=== PATIENT | female | born 1965 | race Caucasian/White ===

== ENCOUNTER 2020-03-02 11:24 | Outpatient (CLI) | payer OTHER, SELFPAY ==
--- NOTE | ~2020-03-02 | XR_ITS ---
XR hip LT min 2V 03/02/2020 11:45 Indication: Left hip pain Procedure: 2 views left hip Comparison: No prior studies for comparison. Findings: Mild osteoarthritis of the left hip. There is subchondral lucency superiorly in the femoral head with overlying sclerosis. Cannot exclude subtle avascular necrosis of the femoral head. Impression: 1: Mild osteoarthritis of the left hip with possible underlying avascular necrosis. Reviewed, dictated and finalized at location A. Impression: 1: Mild osteoarthritis of the left hip with possible underlying avascular necro sis.
== END 2020-03-02 11:25 | disposition home or self-care (01) ==
LOC: ANHIMG 11:30
PROVIDERS: PCP Physician Assistant; Visit Provider Physician Assistant
DX: M25.552 Pain in left hip (principal); M16.12 Unilateral primary osteoarthritis, left hip
CPT/HCPCS: 73502

== ENCOUNTER → 2020-04-03 10:03 | Outpatient (CLI) | payer OTHER, SELFPAY ==
--- NOTE | ~2020-04-03 | MR_ITS ---
EXAMINATION: MR hip LT wo con DATE: 04/03/2020 10:58 INDICATION: Left hip pain in the flexors and abductors. Limited range of motion at the left hip. TECHNIQUE: Magnetic resonance imaging (MRI) of the left hip was performed without intravenous contra st. Sequences included full-field axial PD-weighted FS FSE and T1-weighted FSE, coronal of the pelvis with PD-weighted FS FSE, small field of view of the left hip with axial PD-weighted FS FSE, sagitta l PD-weighted FS FSE and coronal PD weighted FS FSE. Additional radial T1-weighted FGR oriented ortho gonal to the acetabular rim were obtained for evaluation of the labrum. COMPARISON: Radiograph dated 03/02/2020 FINDINGS: Bones/labrum/cartilage: Alignment is normal. There is prominent marrow edema at the left femoral head and neck associated wit h a large region of osteonecrosis with double line sign which underlies the articular surface through out the cephalad half of the left femoral head. There is some subarticular collapse with subtle shereen ening of the anterosuperior femoral head which is evident both on the current MRI and the prior radio graphs. Similar large region of osteonecrosis at the cephalad aspect of the contralateral right femor al head without significant surrounding edema and without evident collapse of the articular surface. There is mild secondary osteoarthritis with partial thickness cartilage loss nonuniform joint space n arrowing most prominent anterosuperiorly with there is also underlying reactive subarticular edema. D iffuse degenerative tearing of the left acetabular labrum most severe at the anterosuperior labrum wh ere it has a thickened macerated appearance with poorly defined margins. There appears be a linear mo re well-defined labral tear at the superolateral aspect of the contralateral right acetabular labrum which is not diagnostically evaluated on the larger field of view images. Fluid: Small left hip joint effusion. Physiologic amount fluid at the right hip joint. No bursitis or other abnormal fluid collections. Soft tissues: Normal and symmetric muscle signal with no asymmetric muscular atrophy in the pelvis and visualized p roximal thighs. The iliopsoas, gluteal and proximal hamstring tendons are normal. The uterus is not i dentified and has likely been surgically resected. Limited evaluation of visceral organs of the pelvi s is otherwise unremarkable. No pathologically enlarged pelvic/inguinal lymphadenopathy. IMPRESSION: 1. Large regions of osteonecrosis/avascular necrosis at the cephalad aspect of both the left and righ t femoral heads, more advanced on the left where there is collapse and subtle flattening of the artic ular surface with prominent underlying marrow edema. 2. Mild left hip osteoarthritis with diffuse labral degeneration. 3. Likely tear at the superolateral right acetabular labrum although evaluation is more limited on th e larger field of view images. Reviewed, dictated and finalized at location A. IMPRESSION: 1. Large regions of osteonecrosis/avascular necrosis at the cephalad aspect of both the left and right femoral heads, more advanced on the left where there is collapse and subtle flattening of the articular surface with prominent underly ing marrow edema. 2. Mild left hip osteoarthritis with diffuse labral degeneration. 3. Likely tear at the superolateral right acetabular labrum although evaluation is more limited on the larger field of view images.
== END ==
PROVIDERS: PCP Family Medicine
DX: M25.551 Pain in right hip (principal); M16.12 Unilateral primary osteoarthritis, left hip; M87.9 Osteonecrosis, unspecified
CPT/HCPCS: 73721

== ENCOUNTER 2020-06-15 19:35 | Emergency (ER) | payer BC, SELFPAY ==
--- NOTE | ~2020-06-15 | XR_ITS ---
EXAMINATION: XR hand LT min 3V DATE: 06/15/2020 20:30 INDICATION: Dog bite of left hand fourth digit. TECHNIQUE: 3 views of left hand were obtained. COMPARISON: None. FINDINGS: Bone alignment is normal. No fracture. There is mild osteoarthritis of third and fourth met acarpophalangeal joints and fifth proximal interphalangeal joint. There are surgical clips in the rad ial volar aspect of the distal forearm. IMPRESSION: 1. No fracture or radiopaque foreign body. Reviewed, dictated and finalized at location A.
--- NOTE | ~2020-06-15 | XR_ITS ---
EXAMINATION: XR hand RT min 3V DATE: 06/15/2020 20:30 INDICATION: Dog bite of right hand third digit. TECHNIQUE: 3 views of right hand were obtained. COMPARISON: None. FINDINGS: Bone alignment is normal. There is a nondisplaced stellate fracture of tuft of third distal phalanx. There is mild osteoarthritis of first interphalangeal joint. IMPRESSION: 1. Nondisplaced stellate fracture of tuft of third distal phalanx. Reviewed, dictated and finalized at location A.
[2020-06-15 19:37] VITALS: BP 134/72; PULSE 79; RESP 18; TEMP 36.3; O2SAT 99
[2020-06-15] MEDS: TETANUS,DIPHTHERIA,AC PERTUSSIS ADULT (0.5 ML) BOOSTRIX IM (20:20)
--- NOTE | 2020-06-15 20:22 | ED.ANIMALBIT ---
HPI - Animal Bite General Chief Complaint: Animal Bite Stated Complaint: dog bite Time Seen by Provider: 06/15/20 19:46 Source: patient Mode of arrival: ambulatory Limitations: no limitations History of Present Illness HPI narrative: This is a 54-year-old female that presents the emergency department for dog bite today. Reports her dogs were fighting and she tried to break it up. Reports she sustained puncture wounds to both her hands. Reports her dogs are up-to-date on their vaccinations. She thinks her last tetanus vaccine was more than 5 years ago. Denies decreased range of motion or numbness. Related Data Home Medications Medication Instructions Recorded Confirmed clopidogrel 75 mg tablet 75 mg PO DAILY 09/19/19 05/29/20 isosorbide mononitrate 30 mg 30 mg PO DAILY 09/19/19 05/29/20 tablet,extended release 24 hr metoprolol succinate 25 mg 25 mg PO DAILY 09/19/19 05/29/20 tablet,extended release 24 hr rosuvastatin 20 mg tablet 20 mg PO DAILY 09/19/19 05/29/20 aspirin 81 mg PO DAILY 06/15/20 06/15/20 Allergies Allergy/AdvReac Type Severity Reaction Status Date / Time No Known Drug Allergies Allergy Mild Other Verified 03/22/20 12:20 Review of Systems Review of Systems: Narrative: CONSTITUTIONAL: Denies fever SKIN: Reports laceration MUSCULOSKELETAL: Reports joint pain, and myalgia. 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/antiplatelets Migraine headache with aura Mixed hyperlipidemia Muscle strain of left hip Thoracic outlet syndrome of right thoracic outlet Surgical History Surgical History (System 03/22/20 @ 12:20 by Lia Aponte) History of open heart surgery Hx of cardiac cath Hx of neck surgery Hx of rotator cuff surgery Family History Family History (System 03/22/20 @ 12:20 by Lia Aponte) Mother Cerebrovascular accident Father Acute myocardial infarction Sibling Heart disease Sibling Heart disease Sibling Diabetes mellitus Family history of cardiovascular disease Mother Hypertension Family history of cardiovascular disease Father Family history of cardiovascular disease Social History Social History (System 03/22/20 @ 12:20 by Lia Aponte) Smoking status: Never smoker Alcohol intake: current Drinks per week: 3 Substance use: never Exam Narrative: Exam Narrative: GENERAL: Well-appearing, well-nourished, and in no acute distress. HEAD: Normocephalic, atraumatic. EYES: EOMI. EXTREMITIES: Normal range of motion. No edema or obvious deformity. Right 3rd finger distal phalanx palmar surface with 2cm linear laceration into subcutaneous tissue. Multiple more superficial abrasions to the bilateral hands with bruising. Normal sensation SKIN: Warm, dry, no rash. NEURO: No focal deficits. Alert and oriented x3. PSYCH: Normal mood and affect Course Consultations Consultation #1: Spoke with Dr. Ashby about patient and work-up will follow-up in clinic. Agrees with keeping wound open to drain. Date: 06/15/20 Time: 21:36 Vital Signs Vital signs: Vital Signs Temperature 97.4 F L 06/15/20 19:37 Pulse Rate 79 06/15/20 19:37 Respiratory Rate 18 06/15/20 19:37 Blood Pressure 134/72 06/15/20 19:37 Pulse Oximetry 99 06/15/20 19:37 Temperature 97.4 F L 06/15/20 19:37 Pulse Rate 79 06/15/20 19:37 Respiratory Rate 18 06/15/20 19:37 Blood Pressure 134/72 06/15/20 19:37 Pulse Oximetry 99 06/15/20 19:37 Procedures Lacerati
[2020-06-15] MEDS: AMOXICILLIN/CLAVULANATE K 875-125 MG TAB 1 TABLET PO (21:39)
[2020-06-15] MEDS: FLUCONAZOLE 150 MG TABLET PO (21:39)
[2020-06-15 21:46] VITALS: BP 112/75; PULSE 67; RESP 18; TEMP 36.6; O2SAT 98
== END 2020-06-15 21:47 | disposition home or self-care (01) ==
PROVIDERS: Emergency Provider Emergency Medicine; PCP Family Medicine
DX: S62.662B Nondisplaced fracture of distal phalanx of right middle finger, initial encounter for open fracture (principal); W54.0XXA Bitten by dog, initial encounter; Z23 Encounter for immunization; I25.10 Atherosclerotic heart disease of native coronary artery without angina pectoris; I25.2 Old myocardial infarction; E78.2 Mixed hyperlipidemia; G54.0 Brachial plexus disorders; M87.9 Osteonecrosis, unspecified
CPT/HCPCS: 73130; 90471; 90715; 99284; A9270

== ENCOUNTER 2020-07-29 19:05 | Emergency (ER) | payer BC, SELFPAY ==
--- NOTE | ~2020-07-29 | XR_ITS ---
XR chest 1V portable 07/29/2020 20:01 Indication: Shortness of breath. Covid Positive. Procedure: AP portable chest Comparison: Comparison to multiple prior studies sequentially, with oldest reviewed study dated 07/05. Findings: There are infiltrates of the right upper, mid and bilateral lower lung zones, consistent wi th pneumonia. Calcified granulomas left apex. No pleural effusion. Heart size normal. No pneumothorax . No acute osseous abnormality. Impression: 1: Infiltrates of the right upper, mid and bilateral lower lung zones, consistent with pneumonia. Reviewed, dictated and finalized at location A. Impression: 1: Infiltrates of the right upper, mid and bilateral lower lung zones, consiste nt with pneumonia.
[2020-07-29 19:08] VITALS: BP 134/65; PULSE 83; RESP 20; TEMP 36.2; O2SAT 98
[2020-07-29 19:37] VITALS: PULSE 82; O2SAT 99
[2020-07-29] MEDS: BENZONATATE 100 MG CAPSULE 200 MG PO (20:06)
[2020-07-29 20:30] VITALS: BP 144/85; PULSE 81; RESP 22; O2SAT 100
[2020-07-29 20:46] LABS: Basophils Percent Auto 0.2 % (0.2-1.2); Hematocrit 35.4 % (37.0-47.0); Hemoglobin 11.9 g/dL (12.0-15.0); Immature Granulocyte Absolute 0.03 K/mm3 (0.00-0.031); Immature Granulocyte Percent A 0.6 % (0-0.5); Lymphocytes Absolute Auto 0.54 K/mm3 (0.9-3.2); Mean Corpuscular HGB Conc 33.6 g/dl (32-36); Mean Corpuscular Hemoglobin 30.9 pg (26-34); Mean Corpuscular Volume 91.9 fl (80-100); Mean Platelet Volume 8.4 fl (7.4-10.4); Monocytes Absolute Auto 0.5 K/mm3 (0.1-0.6); Neutrophils Absolute Auto 3.9 K/mm3 (1.3-6.7); Neutrophils Percent Auto 78.2 % (45.5-73.1); Platelet Count Result 362 k/mm3 (150-375); Red Blood Count 3.85 M/mm3 (4.2-5.4); Red Cell Distribution Width 11.9 % (11.5-14.5); White Blood Count 4.9 K/mm3 (4.5-10.0)
[2020-07-29 20:57] LABS: Lactic Acid Reflex 1.5 mmol/L (0.7-2.1); Prothrombin Time 12.5 Seconds (11.1-14.7)
[2020-07-29 20:58] LABS: Alanine Aminotransferase 15 U/L (4-35); Alkaline Phosphatase 129 U/L (38-126); Anion Gap 11 mmol/L (8-16); Aspartate Amino Transferase 42 U/L (14-36); Bilirubin,Total 0.6 mg/dL (0.2-1.3); Blood Urea Nitrogen 7 mg/dL (7-17); Calcium 9.2 mg/dL (8.4-10.2); Carbon Dioxide 28 mmol/L (22-30); Chloride 97 mmol/L (98-107); Estimated CRCL calculation 91 ml/min; Estimated Glomerular Filt Rate > 60; Glucose 109 mg/dL (65-105); Potassium 3.7 mmol/L (3.4-5.0); Sodium 136 mmol/L (137-145)
[2020-07-29 21:00] LABS: D Dimer 0.96 ug/mL (<0.48)
--- NOTE | 2020-07-29 21:27 | ED.GENADULT ---
HPI - General Adult General Chief complaint: Upper Respiratory Infection Stated complaint: shortness of breath, covid-19 positive Time Seen by Provider: 07/29/20 19:15 History of Present Illness HPI narrative: Patient is a 54-year-old female who presents the ER with shortness of breath and cough. Patient had a preoperative screening on 07/22/2020 that came back positive the next day for COVID-19. The day after that she began to experience symptoms such as runny nose and cough. The symptoms have progressed over the last week and she has persistent resting cough and increased shortness of breath with exertion. She still having fevers. No body aches. She does have postnasal drip with sore throat with this cough. No chest pain or chest pressure. No alleviating factors that she is noted. Related Data Home Medications Medication Instructions Recorded Confirmed clopidogrel 75 mg tablet 75 mg PO DAILY 09/19/19 05/29/20 isosorbide mononitrate 30 mg 30 mg PO DAILY 09/19/19 05/29/20 tablet,extended release 24 hr metoprolol succinate 25 mg 25 mg PO DAILY 09/19/19 05/29/20 tablet,extended release 24 hr rosuvastatin 20 mg tablet 20 mg PO DAILY 09/19/19 05/29/20 aspirin 81 mg PO DAILY 06/15/20 06/15/20 Allergies Allergy/AdvReac Type Severity Reaction Status Date / Time No Known Drug Allergies Allergy Mild Other Verified 03/22/20 12:20 Review of Systems Review of Systems: All systems reviewed & are unremarkable except as noted in HPI and below Constitutional: Constitutional: Reports chills, Reports fatigue and Reports fever(s) ENT: Reports nasal congestion and Reports sore throat Comments: Positive postnasal drip Cardiovascular: Cardiovascular: Denies chest pain and Denies radiating jaw, neck or arm pain Respiratory: Respiratory: Reports cough, Reports dyspnea and Denies wheezing Gastrointestinal: Gastrointestinal: Denies abdominal pain, Denies nausea and Denies vomiting [facility] Past Medical History Medical History (Updated 07/29/20 @ 21:31 by Teo Cabrera MD) Allergic to bees Anxiety Avascular necrosis of bone of left hip BMI 25.0-25.9,adult Coronary artery disease COVID-19 Depression Dislocation of right shoulder joint Frequent headaches Heart attack Heart disease 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 Migraine headache with aura Mixed hyperlipidemia Muscle strain of left hip Thoracic outlet syndrome of right thoracic outlet Surgical History Surgical History (System 03/22/20 @ 12:20 by Lia Aponte) History of open heart surgery Hx of cardiac cath Hx of neck surgery Hx of rotator cuff surgery Family History Family History (System 03/22/20 @ 12:20 by Lia Aponte) Mother Cerebrovascular accident Father Acute myocardial infarction Sibling Heart disease Sibling Heart disease Sibling Diabetes mellitus Family history of cardiovascular disease Mother Hypertension Family history of cardiovascular disease Father Family history of cardiovascular disease Social History Social History (System 03/22/20 @ 12:20 by Lia Aponte) Smoking status: Never smoker Alcohol intake: current Drinks per week: 3 Substance use: never Exam Narrative: Exam Narrative: GENERAL: Fatigue-appearing, well-nourished, and in no acute distress. HEAD: Normocephalic, atraumatic. ENT: Mucous membranes moist. CHEST: Crackles right mid and lower lung zones. Apices clear. Frequent coughing but no respiratory distress.. HEART: Regular rate and rhythm. Normal peripheral pulses. EXTREMITIES: Normal range of motion. No edema. SKIN: Warm, dry, no rash. NEURO: Alert and oriented x3. Course Course Emergency Course: Patient informed of results. Patient ambulate around the room without hypoxia. Will start on azithromycin and albuterol. Strict return precautions given. Vital Sign
[2020-07-29 21:45] VITALS: BP 138/81; PULSE 77; RESP 23; TEMP 37.1; O2SAT 99
== END 2020-07-29 21:50 | disposition home or self-care (01) ==
PROVIDERS: Emergency Provider Emergency Medicine; PCP Family Medicine
DX: U07.1 COVID-19 (principal); J12.89 Other viral pneumonia; I25.10 Atherosclerotic heart disease of native coronary artery without angina pectoris; I25.2 Old myocardial infarction; E78.2 Mixed hyperlipidemia; Z79.82 Long term (current) use of aspirin
CPT/HCPCS: 36415; 71045; 80053; 83605; 85025; 85380; 85610; 85730; 87040; 99283; A9270

== ENCOUNTER 2021-05-07 13:40 | Outpatient (CLI) | payer OTHER, BC, SELFPAY ==
--- NOTE | ~2021-05-07 | XR_ITS ---
XR hip RT 2V w AP pelvis DATE: 05/07/2021 14:10 INDICATION: Right hip pain TECHNIQUE: AP pelvis. AP and lateral views of right hip. COMPARISON: None FINDINGS: Surgical clips overlie the mid lower abdomen. Surgical clips overlie the left inguinal area and proximal left thigh. Status post bilateral total hip arthroplasty, with normal alignment of the prosthetic devices. There is diffuse osteopenia. The pubic symphysis and sacral iliac joints are intact. No pelvic fracture or bone destruction is detected. No fracture or dislocation or bone destruction of the right hip. IMPRESSION: Bilateral total hip arthroplasty Osteopenia Reviewed, dictated and finalized at location B.
--- NOTE | ~2021-05-07 | XR_ITS ---
XR_[id number]_CR DATE: 05/07/2021 14:09 INDICATION: Neck pain TECHNIQUE: AP, open-mouth and lateral views COMPARISON: None FINDINGS: Status post anterior cervical spine fusion at C5-C7. There is straightening of the cervical spine. C1 and C2 are normally aligned and the odontoid process is intact. No fracture or dislocation, locked facet or prevertebral soft tissue swelling is evident. There is moderate degenerative disc disease and mild retrolisthesis at C4-5. Status post sternotomy. IMPRESSION: Status post anterior cervical spine fusion at C5 7 Moderate degenerative disease at C4-5 Reviewed, dictated and finalized at Location A. Reviewed, dictated and finalized at location B.
== END 2021-05-07 13:41 | disposition home or self-care (01) ==
LOC: ANHIMG 13:44
PROVIDERS: PCP Family Medicine; Visit Provider Nurse Practitioner Family
DX: M47.812 Spondylosis without myelopathy or radiculopathy, cervical region (principal); Z98.1 Arthrodesis status; M17.11 Unilateral primary osteoarthritis, right knee
CPT/HCPCS: 72040; 73502

== ENCOUNTER → 2022-03-25 17:32 | Outpatient (CLI) | payer BC, SELFPAY ==
--- NOTE | ~2022-03-25 | XR_ITS ---
EXAM: XR foot RT min 3V DATE: 03/25/2022 17:51 HISTORY: M79.671 - Pain in right foot swelling to top of metatarsal . COMPARISON: None available. FINDINGS: Decreased mineralization. No fracture or dislocation. No lytic or blastic lesion. Joint sp aces are maintained. No erosion or periosteal change. Soft tissues within normal limits. IMPRESSION: Osteopenia. Otherwise normal right foot radiograph findings. Reviewed, dictated and finalized at location K.
== END ==
PROVIDERS: PCP Family Medicine; Visit Provider Family Medicine
DX: M79.671 Pain in right foot (principal); M85.871 Other specified disorders of bone density and structure, right ankle and foot
CPT/HCPCS: 73630

== ENCOUNTER → 2023-09-23 15:06 | Outpatient (CLI) | payer BC, SELFPAY ==
--- NOTE | ~2023-09-23 | XR_ITS ---
EXAMINATION: XR chest 2V Exam Date/Time: 09/23/2023 15:11 AWNING SPREADER HISTORY: R22.9 - Localized swelling, mass and lump, unspecified Comparison: 07/29/2020, 09/25/2019. RESULT: Lines, tubes, and devices: Surgical clips over the right lower neck and mediastinum. Coronary stents . ACDF hardware. Median sternotomy wires, multiple are fractured but remain in stable position. Loop recorder. Bilateral breast implants. Lungs and pleura: Clear. Cardiomediastinal silhouette: Stable. Other: No acute osseous or upper abdominal finding. IMPRESSION: No acute cardiopulmonary process. Loop recorder projecting over the left anterior medial chest, could correspond to a palpable abnormal ity. Multiple fractured sternotomy wires could also create palpable abnormalities, although these are stable since 2019. Reviewed, dictated and finalized at location K. NG SPREADER IMPRESSION: No acute cardiopulmonary process. Loop recorder projecting over the left anterior medial chest, could correspond to a palpable abnormality. Multiple fractured sternotomy wires could also creat e palpable abnormalities, although these are stable since 2019.
== END ==
PROVIDERS: PCP Nurse Practitioner Family; Visit Provider Nurse Practitioner Family
DX: R22.9 Localized swelling, mass and lump, unspecified (principal); Z95.818 Presence of other cardiac implants and grafts; Z98.890 Other specified postprocedural states
CPT/HCPCS: 71046

== ENCOUNTER 2024-05-08 12:51 | Outpatient (CLI) | payer BC, SELFPAY ==
--- NOTE | ~2024-05-08 | XR_ITS ---
Clinical Indication: Chest pain PA and lateral views of the chest: Comparison: 09/23/2023 Findings: The lungs are clear, without evidence of focal consolidation or pleural effusion. Cardiome diastinal silhouette is stable, with a loop recorder. Bones and soft tissues are unremarkable. Impression: Clear lungs. Reviewed, dictated and finalized at location . Impression: Clear lungs.
== END 2024-05-08 12:52 | disposition home or self-care (01) ==
LOC: ANHIMG 12:52
PROVIDERS: PCP Nurse Practitioner Family; Visit Provider Family Medicine
DX: R07.89 Other chest pain (principal)
CPT/HCPCS: 71046

== ENCOUNTER 2024-09-21 00:20 | Day surgery (SDC) | payer BC, SELFPAY ==
[2024-09-14 15:45] VITALS: BMI 18.3
--- NOTE | 2024-09-14 16:15 | PC.NURSE ---
Spoke with PATIENT regarding medication PLAVIX. PATIENT verbalizes understanding that the last dose is to be taken on 09/14/24 and the Endoscopist will instruct them when to restart after the procedure.
[2024-09-21 09:18] VITALS: BP 118/71; PULSE 69; RESP 16; TEMP 36.5; O2SAT 93; BMI 17.4
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
[2024-09-21] MEDS: LACTATED RINGERS 1,000 ML 150 ML IV CONT (09:47)
--- NOTE | 2024-09-21 10:47 | SUR.OPER ---
EGD END 1044 COLONOSCOPY START 104
[2024-09-21 11:06] VITALS: BP 99/67; PULSE 57; RESP 20; O2SAT 100
[2024-09-21 11:16] VITALS: BP 97/58; PULSE 67; RESP 23; O2SAT 97
[2024-09-21 11:26] VITALS: BP 98/66; PULSE 58; RESP 25; O2SAT 98
--- NOTE | 2024-09-21 11:29 | SUR.PHASEII ---
Addendum entered by Lalo Grey RN 09/21/24 11:32: Patient reports pain as letting up. Dr. Duran requesting to reassess patient after current procedure. Will monitor patient. Original Note: Patient complaining of 10/10 right hip pain, sharp and radiating down right leg. Patient provided with warm blanket, attempted to reposition. Per intraop staff, no issues with position patient during procedure. Dr. Duran and Dr. Murdock notified and aware of patient complaints.
--- NOTE | 2024-09-21 11:55 | SUR.PHASEII ---
Dr. Duran at bedside to assess patients right hip pain. Dr. Duran performed all range of motion exercises on patient and patient verbalizes she feels okay and was able to participate with minimal pain. Dr. Duran recommending that patient have consult to orthopaedic surgeon educational resource center teacher prior to discharge. Patient refuses ortho consult and/or ER visit. Dr. Duran notified. She was instructed to go to the nearest ER if pain persists. Also recommended her to follow up with her establish orthopaedic surgeon at [facility]. Patient rates pain 5/10 at time of discharge. She was able to walk to wheelchair with standby assistance and appeared in no distress to RN.
== END 2024-09-21 12:03 | disposition home or self-care (01) ==
PROVIDERS: PCP Nurse Practitioner Family; Referring Provider Family Medicine; Visit Provider Internal Medicine Gastroenterology
PROC: 0DJ08ZZ Inspection of Upper Intestinal Tract, Via Natural or Artificial Opening Endoscopic (ICD-10-PCS; CPT 43235; principal; 2024-09-21 10:30)
DX: R63.4 Abnormal weight loss (principal); K59.00 Constipation, unspecified; D12.2 Benign neoplasm of ascending colon; K29.30 Chronic superficial gastritis without bleeding; Z79.02 Long term (current) use of antithrombotics/antiplatelets; Z79.82 Long term (current) use of aspirin; Z79.51 Long term (current) use of inhaled steroids; Z68.1 Body mass index [BMI] 19.9 or less, adult
CPT/HCPCS: 45385; 43239; 88305; J2003; J2704; J7120

== ENCOUNTER 2025-04-02 09:53 | Emergency (ER) | payer BC, SELFPAY ==
[2025-04-02 10:01] VITALS: BP 99/53; PULSE 53; RESP 16; TEMP 36.6; O2SAT 100
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
[2025-04-02 10:25] LABS: EDSTREPNEGPOS1 Negative (Negative)
== END 2025-04-02 10:42 | disposition home or self-care (01) ==
PROVIDERS: Emergency Provider Nurse Practitioner Family; PCP Family Medicine
DX: J06.9 Acute upper respiratory infection, unspecified (principal); E78.5 Hyperlipidemia, unspecified; I10 Essential (primary) hypertension; I25.2 Old myocardial infarction; I25.10 Atherosclerotic heart disease of native coronary artery without angina pectoris; Z87.891 Personal history of nicotine dependence
CPT/HCPCS: 87081; 87880; 99213; G0463